=== PATIENT | male | born 1960 ===

== ENCOUNTER 2023-06-29 03:47 | Day surgery (SDC) | payer BC ==
[2023-06-28 13:23] VITALS: BMI 36.9
[2023-06-29] MEDS ORDERED: BUPIVACAINE HCL/PF 0.5% (5MG/ML) 10 ML VIAL ONE (07:22)
[2023-06-29] MEDS ORDERED: LIDOCAINE 1%/EPI 1:100000 (20 ML MULTI DOSE VIAL) ONE (07:22)
[2023-06-29] MEDS ORDERED: COCAINE HCL 4% TOPICAL SOLUTION 4 ML BOTTLE TP ONE (07:28)
[2023-06-29] MEDS ORDERED: DEXAMETHASONE SOD PHOSPHATE 4 MG/1 ML VIAL ONE (07:30)
[2023-06-29] MEDS ORDERED: LIDOCAINE HCL/PF 2% SDV 5ML VIAL ONE (07:30)
[2023-06-29] MEDS ORDERED: ONDANSETRON 4 MG/2 ML VIAL ONE ×2 (07:30→10:44)
[2023-06-29] MEDS ORDERED: ceFAZolin SODIUM 1 GM VIAL ONE (07:30)
[2023-06-29] MEDS ORDERED: SODIUM CHLORIDE 0.9% P/F 10 ML VIAL IJ ONE (07:30)
[2023-06-29] MEDS ORDERED: SUCCINYLCHOLINE CHLORIDE 200 MG/10 ML SYRINGE ONE (07:31)
[2023-06-29] MEDS ORDERED: ROCURONIUM BROMIDE 50 MG/5 ML SYRINGE ONE ×2 (07:33→08:40)
[2023-06-29] MEDS ORDERED: MIDAZOLAM HCL 2 MG/2 ML SINGLE DOSE VIAL ONE (07:35)
[2023-06-29] MEDS ORDERED: FENTANYL CITRATE/PF 50 MCG/ML VIAL ONE ×2 (07:36→13:09)
[2023-06-29] MEDS ORDERED: PROPOFOL 40 ML ONE (07:38)
[2023-06-29] MEDS ORDERED: HYDROmorphone HCl 2 MG/ML VIAL ONE (07:39)
[2023-06-29] MEDS ORDERED: ONDANSETRON 4 MG/2 ML VIAL IVPUSH PRN (08:04)
[2023-06-29] MEDS ORDERED: LACTATED RINGERS SOLUTION 1,000 ML IV SCH (08:15)
[2023-06-29] MEDS ORDERED: ceFAZolin SODIUM 1 GM VIAL IVPB ONE (08:15)
[2023-06-29] MEDS ORDERED: LIDOCAINE 1%/EPI 1:100000 (50 ML MULTI DOSE VIAL) INF ONE ×2 (08:32)
[2023-06-29] MEDS ORDERED: OXYMETAZOLINE 0.05% NASAL SOLUTION 15 ML BOTTLE NS ONE (08:44)
[2023-06-29] MEDS ORDERED: SUGAMMADEX SODIUM 200 MG/2 ML VIAL ONE (10:39)
[2023-06-29] MEDS ORDERED: ACETAMINOPHEN INJECTION 100 ML IVPB ONE (10:42)
[2023-06-29] MEDS ORDERED: BACITRACIN ZINC 15 GM TUBE TOPICAL OINTMENT ONE (11:15)
[2023-06-29] MEDS ORDERED: BACITRACIN ZINC 15 GM TUBE TOPICAL OINTMENT TP ONE (11:19)
[2023-06-29 14:24] VITALS: RESP 18
[2023-06-29] MEDS ORDERED: ONDANSETRON *ODT* 4 MG TABLET ONE (16:12)
[2023-06-29] MEDS ORDERED: ONDANSETRON 4 MG TABLET PO ONE (16:15)
[2023-06-29] MEDS ORDERED: ONDANSETRON *ODT* 4 MG TABLET SL ONE (16:27)
[2023-06-29 16:45] VITALS: BP 149/88; PULSE 65; TEMP 96.9
== END 2023-06-29 16:35 | disposition home or self-care (01) ==
LOC: JASUSAT 03:47
PROVIDERS: ATTEND Otolaryngology
PROC: 0NR Head and Facial Bones, Replacement (ICD-10-PCS; principal; 2023-06-29 08:00)
DX: S02.2XXD Fracture of nasal bones, subsequent encounter for fracture with routine healing (principal); J34.2 Deviated nasal septum; J34.3 Hypertrophy of nasal turbinates
CPT/HCPCS: 94760; Q0162